=== PATIENT | male | born 1980 | race Caucasian/White ===

== ENCOUNTER 2019-05-04 02:10 | Emergency (ER) | payer OTHER, SELFPAY ==
[2019-05-04 02:12] VITALS: BP 134/98; PULSE 77; RESP 16; TEMP 36.8; O2SAT 94; BMI 35.1
--- NOTE | 2019-05-04 03:08 | ED.VIS.GI ---
History of Present Illness Chief Complaint: Nausea/Vomiting/Diarrhea Informant: Patient - Abdominal Pain/Flank Pain Onset: Hours - 24 Context: Gradual Onset Timing: Continuous Quality: Cramping Location: Diffuse Current Severity: Mild Maximum Severity: Mild Worsened by: Food Relieved by: Nothing - Nausea/Vomiting/Emesis GI Symptom: Nausea, Vomiting Severity: Mild Episodes: 2 - Diarrhea/Melena/Hematochezia GI Symptom: Diarrhea. Negative for: Melena, Hematochezia Onset: Yesterday Severity: Moderate Episodes: 7 Associated Symptoms: Negative for: Dysuria, Frequency, Hematuria, Urgency Narrative: Subjective fever and chills. Some mild cramping in his abdomen, diarrhea is the most prominent feature. No recent travel out of the area or country, no new ground water sources of ingestion. No recent antibiotics or other illness. No known sick contacts. No history of any abdominal surgeries. No suspicious food ingestion. Past Medical History - Allergies and Home Meds Allergies/Adverse Reactions: Allergies No Known Allergies Allergy (Verified 05/04/19 02:12) Primary Care Physician: Domenico Garcia III, MD [Primary Care Provider] - Past Medical History: None Surgical History: no surgical history Smoking Status: Never smoker Alcohol: None Review of Systems General: Reports: Chills, Fever, Malaise, Subjective. Denies: Sweats Eyes: Denies: Visual changes - bilaterally, Diplopia ENT: Denies: Rhinorrhea, Sore throat Cardiovascular: Denies: Chest pain, Palpitations Respiratory: Denies: Dyspnea, Cough, Dyspnea on exertion Gastrointestinal: Reports: Abdominal pain, Nausea, Vomiting, Diarrhea. Denies: Melena, Hematochezia Genitourinary: Denies: Dysuria, Hematuria, Frequency Musculoskeletal: Denies: Back pain, Swelling, Extremity Pain Skin: Denies: Rash, Wounds Neurological: Denies: Headache, Weakness, Numbness Physical Exam Vital Signs/Narrative: Vital Signs Temp Pulse Resp BP Pulse Ox 05/04/19 02:12 98.3 F 77 16 134/98 H 94 Inital Vital Signs reviewed: Yes General: Well nourished, Well developed, No Acute Distress - Appears malaised Head: Normocephalic, Atraumatic Eyes: Perrl, EOMI ENT: Moist mucous membranes, No rhinorrhea Neck: Supple, Nontender Cardiovascular: Regular rate, Regular rhythm, No murmurs Respiratory: No distress, CTA bilaterally, Chest nontender Abdomen: Soft, Nondistended, Normal bowel sounds, Tender - Mild diffuse, worst in the left upper quadrant. Negative for: Guarding, Rebound tenderness Back: Nontender, Normal Inspection. Negative for: CVA tenderness Extremities: Nontender, No edema Skin: Normal color, No rash Neurological: Alert, Oriented x3, Cranial nerves II-XII grossly intact, Normal Strength, Normal Sensation Psychological: Normal affect, Normal Mood Diagnostic/Tx/Re-eval - Medical Decision Making Patient had a couple of episodes of diarrhea here, no blood. He was treated with IV fluids, Zofran, Bentyl. He had some improvement but still felt nauseated, no vomiting. Additionally given some more fluids and Phenergan. He is ambulatory in the department. There is a high prevalence of viral gastroenteritis in the area right now and I suspect he has it. His abdomen is very benign and I do not think he needs further work-up for anything else right now. We will discharge him home on Phenergan and Bentyl and we discussed reasons to return. He is comfortable with this plan. ED Disposition - Plan for ED Patient: Disposition: Home or Assisted Living Diagnosis: Gastroenteritis Instructions: GASTROENTERITIS, Viral (5y-Adult) Prescriptions: Dicyclomine HCl [Bentyl] 1 - 2 cap PO Q4H PRN #20 cap PRN Reason: abdominal cramping Prescription Printed proMETHazine tablet [Phenergan] 25 mg PO Q6H PRN PRN #15 tab PRN Reason: Nausea Prescription Printed Referrals: Domenico Garcia III, MD [Primary Care Provider] - 3-5 Days if not improving
[2019-05-04] MEDS: Dicyclomine 10 MG Capsule 20 MG PO (03:15)
[2019-05-04] MEDS: Ondansetron 4 MG/2 ML Vial IV (03:16)
[2019-05-04] MEDS: 0.9% Normal Saline 1,000 ML 999 ML IV (03:16)
[2019-05-04] MEDS: Loperamide 2 MG Capsule 4 MG PO (03:19)
[2019-05-04] MEDS: proMETHazine 25 MG/ML Syringe 12.5 MG IV (04:40)
[2019-05-04 05:51] VITALS: BP 137/90; PULSE 74; RESP 18; O2SAT 97
== END 2019-05-04 08:00 | disposition home or self-care (01) ==
PROVIDERS: Emergency Provider Emergency Medicine; Family Provider Family Medicine; PCP Family Medicine
DX: K52.9 Noninfective gastroenteritis and colitis, unspecified (principal)
CPT/HCPCS: 87506; 96361; 96374; 96375; 99283; J7040; A4216; J2405

== ENCOUNTER → 2019-05-04 08:22 | Outpatient (CLI) | payer OTHER, SELFPAY ==
[2019-05-04 02:12] VITALS: BMI 35.1
== END ==
PROVIDERS: Family Provider Family Medicine; PCP Family Medicine; Referring Provider Emergency Medicine; Visit Provider Emergency Medicine
DX: K52.9 Noninfective gastroenteritis and colitis, unspecified (principal)